=== PATIENT | female | born 1940 | race African-American/Black ===

== ENCOUNTER 2023-01-15 08:03 | Emergency (ER) | payer MEDICARE ==
[2023-01-15] MEDS ORDERED: Ibuprofen 200 MG TAB ONE (09:26)
== END 2023-01-15 09:38 | disposition home or self-care (01) ==
LOC: CSHERS 08:03
DX: S93.401A Sprain of unspecified ligament of right ankle, initial encounter (principal); I10 Essential (primary) hypertension; E11.9 Type 2 diabetes mellitus without complications; Z79.84 Long term (current) use of oral hypoglycemic drugs; Z79.82 Long term (current) use of aspirin; W22.8XXA Striking against or struck by other objects, initial encounter

== ENCOUNTER 2024-02-25 08:13 | Emergency (ER) | payer MEDICARE ==
[2024-02-25 09:02] LABS: #Basophils 0.04 10x3/uL (0.0-0.2); #Eosinophils 0.14 10x3/uL (0.0-0.5); #Monocytes 0.74 10x3/uL (0.0-1.1); #Neutrophils 6.43 10x3/uL (1.5-8.4); %Basophils 0.5 % (0.0-2.0); %Eosinophils 1.6 % (0.0-6.0); %Lymphocytes 14.5 % (18.0-47.0); %Monocytes 8.6 % (0.0-10.0); %Neutrophils 74.5 % (40.0-75.0); Hematocrit 34.9 % (34.9-44.5); Mean Corpuscular HGB CONC 31.5 g/dL (32.0-36.0); Mean Corpuscular Hemoglobin 29.7 pg (27.0-33.0); Mean Corpuscular Volume 94.3 fL (81.6-98.3); Mean Platelet Volume 9.4 fL (7.4-10.4); Platelet Count 304 10x3/uL (150-450); RBC Distribution Width 14.5 % (11.5-14.5); White Blood Cell (WBC) Count 8.6 10x3/uL (3.5-10.5)
[2024-02-25] MEDS ORDERED: Ketorolac Tromethamine 30 MG (1 mL) VIAL ONE (09:04)
[2024-02-25 09:15] LABS: ALT (SGPT) 20 U/L (8-55); AST (SGOT) 27 U/L (5-34); Albumin 3.6 g/dL (3.4-4.8); Alkaline Phosphatase 83 U/L (40-110); Anion Gap 15 mmol/L (10-20); BUN (Urea Nitrogen) 32 mg/dL (9.8-20.1); Bilirubin, Total 0.6 mg/dL (0.2-1.2); Calc. Creatinine Clearance 0 mL/min (70-130); Calcium 9.2 mg/dL (7.8-10.44); Carbon Dioxide 22 mmol/L (23-31); Chloride 108 mmol/L (98-107); Estimated GFR 39; Globulin 3.7 g/dL (2.4-3.5); Glucose 133 mg/dL (83-110); Lipase 17 U/L (8-78); Magnesium 2.2 mg/dL (1.6-2.6); Potassium 4.6 mmol/L (3.5-5.1); Protein, Total 7.3 g/dL (5.8-8.1); Sodium 140 mmol/L (136-145)
[2024-02-25 09:21] LABS: Troponin I 0.015 ng/mL (< 0.028)
[2024-02-25] MEDS ORDERED: HYDROcodone/Acetaminophen 5/325 mg Tablet ONE (09:27)
== END 2024-02-25 10:20 | disposition home or self-care (01) ==
LOC: CSHERS 08:13
DX: R29.898 Other symptoms and signs involving the musculoskeletal system (principal); I10 Essential (primary) hypertension; E11.9 Type 2 diabetes mellitus without complications; Z79.82 Long term (current) use of aspirin; Z79.899 Other long term (current) drug therapy
CPT/HCPCS: 71045; 80053; 83690; 83735; 83880; 84484; 85025; 93005; J1885